=== PATIENT | male | born 1960 | race Caucasian/White ===

== ENCOUNTER 2018-04-14 12:13 | Emergency (ER) | payer SELFPAY ==
[~2018-04-14] VITALS: Ht 180.3 cm; Wt 122.5 kg
== END 2018-04-14 12:44 | disposition left against medical advice (07) ==
LOC: ED 12:13
DX: S41.012A Laceration without foreign body of left shoulder, initial encounter (principal); W22.8XXA Striking against or struck by other objects, initial encounter; Y93.G9 Activity, other involving cooking and grilling; Y92.89 Other specified places as the place of occurrence of the external cause; Y99.8 Other external cause status